=== PATIENT | male | born 1965 | race Caucasian/White ===

== ENCOUNTER 2019-08-21 11:30 | Outpatient (RCR) | payer OTHER, SELFPAY | END 2019-08-21 23:59 | disposition home or self-care (01) | LOC: ANHAUDIO 11:30 | PROVIDERS: Visit Provider Internal Medicine | DX: Z46.1 Encounter for fitting and adjustment of hearing aid (principal) | CPT/HCPCS: 99199; V5160; V5261 ==

== ENCOUNTER 2021-08-02 12:55 | Outpatient (CLI) | payer OTHER, SELFPAY ==
--- NOTE | 2021-08-02 13:03 | ECHO_ITS ---
Patient Info Name: Paulo Andrew Age: 55 years : 1965 Gender: Male Ht: 72 in Wt: 195 lbs BSA: 2.13 m2 HR: 74 bpm BP: 166 / 104 mmHg Heart Rhythm: Sinus Rhythm Technical Quality: Fair Exam Date: 08/02/2021 1:25 PM Exam Location: [facility] Pulmonary Patient Status: Outpatient Admit Date: 08/02/2021 Staff Ordering Physician: Kenroy Adamson DO Pc Analyst: Geovanna Adamson RCS Attending Provider: Kenroy Adamson DO Referring Physician: Juan Diego ALVARADO; Exam Type: CA echo doppler color flow Study Info Indications Z95.810 - Presence of automatic (implantable) cardiac defibrillator Complete two-dimensional, color flow and Doppler transthoracic echocardiogram is performed. Summary 1. Complete two-dimensional, color flow and Doppler transthoracic echocardiogram is performed. 2. Left ventricular chamber dimension is severely enlarged. 3. Left ventricular systolic function is severely reduced, estimated at 20-25%. 4. The left ventricular diastolic function is abnormal. 5. E/e' 20 is elevated. 6. Global longitudinal strain is abnormal at -8.3%. 7. Linear artifact in right ventricle suggestive of catheter(s), pacemaker lead(s), or ICD lead(s). 8. Left atrial chamber dimension is moderately enlarged. 9. Linear artifact in the right atrium suggestive of catheter(s), pacemaker lead(s), or ICD lead(s). 10. Right atrial chamber dimension is mildly enlarged. 11. There is mild aortic valve sclerosis. 12. There is mild mitral valve regurgitation. 13. There is mild tricuspid valve regurgitation. 14. Moderate pulmonary hypertension, estimated pulmonary arterial systolic pressure is 55 mmHg. 15. There is trace pulmonic regurgitation. Left Ventricle E/e' 20 is elevated. Global longitudinal strain is abnormal at -8.3%. Left ventricular chamber dimension is severely enlarged. Left ventricular systolic function is severely reduced, estimated at 20-25%. The left ventricular diastolic function is abnormal. Right Ventricle Linear artifact in right ventricle suggestive of catheter(s), pacemaker lead(s), or ICD lead(s). Right ventricular chamber dimension is normal. Right ventricular systolic function is normal. Left Atria Left atrial chamber dimension is moderately enlarged. Right Atria Linear artifact in the right atrium suggestive of catheter(s), pacemaker lead(s), or ICD lead(s). Right atrial chamber dimension is mildly enlarged. Aortic Valve The aortic valve is trileaflet. There is mild aortic valve sclerosis. There is no aortic valve stenosis. There is no aortic valve regurgitation. Pulmonic Valve There is trace pulmonic regurgitation. Mitral Valve There is no mitral valve stenosis. There is mild mitral valve regurgitation. Tricuspid Valve There is mild tricuspid valve regurgitation. Moderate pulmonary hypertension, estimated pulmonary arterial systolic pressure is 55 mmHg. Pericardium/Pleural There is no pericardial effusion. Inferior Vena Cava Normal inferior vena cava with >50% collapse upon inspiration consistent with normal right atrial pressure, 5 mmHg. Aorta The aortic root size at the sinus of Valsalva is normal. Left Ventricular Outflow Tract Name Value Normal LVOT 2D LVOT
== END 2021-08-02 12:56 | disposition home or self-care (01) ==
LOC: ANHCARD 12:56
PROVIDERS: PCP Internal Medicine; Visit Provider Internal Medicine Cardiovascular Disease
DX: I25.10 Atherosclerotic heart disease of native coronary artery without angina pectoris (principal); Z95.810 Presence of automatic (implantable) cardiac defibrillator; I70.0 Atherosclerosis of aorta; I34.0 Nonrheumatic mitral (valve) insufficiency; I36.1 Nonrheumatic tricuspid (valve) insufficiency; I27.20 Pulmonary hypertension, unspecified
CPT/HCPCS: 93306

== ENCOUNTER 2022-06-18 09:50 | Outpatient (CLI) | payer OTHER, SELFPAY ==
--- NOTE | ~2022-06-18 | NM_ITS ---
EXAMINATION: NM keri stress w perfusion DATE: 06/18/2022 12:44 INDICATION: Chest pain, unspecified TECHNIQUE: Rest images were obtained in supine position following intravenous administration of 9.3 m Ci Tc99m tetrofosmin (Myoview). The patient was infused intravenously with Lexiscan (Regadenoson). Th en, 21 mCi Tc99m tetrofosmin (Myoview) was administered intravenously, and stress images were obtaine d in supine position. Additional post stress images were obtained in prone position. Data was reconst ructed into short axis and horizontal and vertical long axis SPECT images. Gated SPECT images were al so obtained. COMPARISON: None. FINDINGS: Large contiguous moderate to severe perfusion defect involving the apical, apical anterior, apical lateral, apical septal, apical inferior, mid inferior, basilar inferior, mid anterolateral an d mid posterior lateral segments. There is an additional separate small severe perfusion defect at th e mid anterior segment which on both the rest and prone post stress images is from the perf usion defect at the apical anterior segment small band of persistent normal perfusion. There is a sma ll region of persistent activity on the rest images at the junction of the mid and basilar inferior a nd inferolateral segments which based on a both the axial slice images as well as the rotating source images appears more likely to represent artifact of transient bowel activity rather than a region of ischemia. There is otherwise no significant difference between the rest and prone post stress images . Marked left ventricular enlargement with calculated end-diastolic volume of 292 mL. There is global hypokinesis with moderately decreased left ventricular ejection fraction measuring 23%. IMPRESSION: 1. 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 2. Separate small moderate severity nonreversible infarct at the mid anterior segment. 3. Small region of mild activity on the rest images along the mid to basilar inferior and mid inferol ateral segments which appears more likely artifact of bowel activity rather than a region for reversi ble ischemia. 4. Left ventricular enlargement with global hypokinesis and moderately decreased left ejection fracti on measuring 23%. Reviewed, dictated and finalized at location A. [facility] IMPRESSION: 1. 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 2. Separate small moderate severity nonreversible infarct at the mid anterior s egment. 3. Small region of mild activity on the rest images along the mid to basilar in ferior and mid inferolateral segments which appears more likely artifact of bow el activity rather than a region for reversible ischemia. 4. Left ventricular enlargement with global hypokinesis and moderately decrease d left ejection fraction measuring 23%.
--- NOTE | 2022-06-18 10:12 | EST_ITS ---
Patient Info Name: Paulo Andrew Age: 56 years : 1965 Gender: Male Ht: 72 in Wt: 172 lbs BSA: 1.99 m2 HR: 67 bpm BP: 152 / 66 mmHg Heart Rhythm: Sinus Rhythm Exam Date: 06/18/2022 10:49 AM Exam Location: [facility] [place] [facility] Patient Status: Outpatient Admit Date: 06/18/2022 Staff Ordering Physician: Kenroy Adamson DO Attending Provider: Kenroy Adamson DO Exercise Technologist: Diana Donohue CT Exercise Physician: Kenroy Adasmon DO Exam Type: CA stress keri w NM Study Info Indications R07.9 - Chest pain, unspecified A regadenoson stress test was performed. Summary 1. 1. Negative lexiscan stress test for ischemic ST changes by ECG criteria. 2. 2. Baseline hypertension. 3. 3. Nuclear scan to follow and will be reported separately. Please correlate with it. 4. 4. Patient informed of the above results. Protocol: Lexiscan Stress ECG Details Stage: REST Duration (min): 3 min : 26 sec HR (bpm): 69 SBP (mmHg): 152 DBP (mmHg): 56 Stage: REST Duration (min): 4 min : 52 sec HR (bpm): 65 SBP (mmHg): 152 DBP (mmHg): 56 Stage: STAGE 1 Duration (min): 0 min : 59 sec HR (bpm): 72 SBP (mmHg): 146 DBP (mmHg): 72 Stage: RECOVERY Duration (min): 1 min : 0 sec HR (bpm): 89 SBP (mmHg): 146 DBP (mmHg): 72 Stage: RECOVERY Duration (min): 2 min : 0 sec HR (bpm): 77 SBP (mmHg): 146 DBP (mmHg): 72 Stage: RECOVERY Duration (min): 2 min : 45 sec HR (bpm): 79 SBP (mmHg): 131 DBP (mmHg): 67 Rest HR: 65 bpm Peak HR: 89 bpm Rest Sys BP: 152 mmHg Peak Sys BP: 146 mmHg Max Pred HR: 163 bpm % Max Pred HR: 55 % Target HR: 139 bpm Max RPP: 12,994 bpm*mmHg Termination Reason: Completed protocol Cardiac Symptoms: Shortness of breath Total Time: 1 min : 0 sec Rest Smith BP: 56 mmHg Peak Smith BP: 72 mmHg Total Dose: 0.4 mg Resting ECG Sinus rhythm, cannot r/o septal infarct, age indeterminate, ST-T wave abnormality in inf/lat leads- consider ischemia. Stress ECG No ST changes. Arrhythmias None. Report Signatures
== END 2022-06-18 09:51 | disposition home or self-care (01) ==
PROVIDERS: PCP Internal Medicine; Visit Provider Internal Medicine Cardiovascular Disease
DX: R07.9 Chest pain, unspecified (principal); I21.09 ST elevation (STEMI) myocardial infarction involving other coronary artery of anterior wall; I51.7 Cardiomegaly
CPT/HCPCS: 78452; 93017; A9502; J2785

== ENCOUNTER 2022-08-07 12:25 | Outpatient (CLI) | payer OTHER, SELFPAY ==
--- NOTE | 2022-08-07 12:48 | ECHO_ITS ---
Patient Info Name: Paulo Andrew Age: 56 years : 1965 Gender: Male Ht: 72 in Wt: 185 lbs BSA: 2.07 m2 HR: 93 bpm BP: 126 / 82 mmHg Heart Rhythm: Sinus Rhythm Technical Quality: Fair Exam Date: 08/07/2022 12:52 PM Exam Location: [facility] Pulmonary Patient Status: Outpatient Admit Date: 08/07/2022 Staff Ordering Physician: Kenroy Adamson DO Station Installation Supervisor: Vanessa Davies RDCS Attending Provider: Kenroy Adamson DO Referring Physician: Juan Diego ALVARADO; Exam Type: CA echo doppler color flow Study Info Indications I51.9 - Heart disease, unspecified Complete two-dimensional, color flow and Doppler transthoracic echocardiogram is performed. Strain analysis performed. Summary 1. Complete two-dimensional, color flow and Doppler transthoracic echocardiogram is performed. 2. Left ventricular chamber dimension is severely enlarged. 3. Left ventricular systolic function is severely globally reduced, estimated at 30-35%. 4. The left ventricular diastolic function is abnormal. 5. E/e' 24 is elevated. 6. Global longitudinal strain is abnormal at -8.8%. 7. Right ventricular chamber dimension is mildly enlarged. 8. Linear artifact in right ventricle suggestive of catheter(s), pacemaker lead(s), or ICD lead(s). 9. Left atrial chamber dimension is mildly enlarged. 10. Right atrial chamber dimension is mildly enlarged. 11. Linear artifact in the right atrium suggestive of catheter(s), pacemaker lead(s), or ICD lead(s). 12. There is mild aortic valve sclerosis. 13. There is trace mitral valve regurgitation. 14. There is mild tricuspid valve regurgitation. 15. Mild pulmonary hypertension, estimated pulmonary arterial systolic pressure is 40 mmHg. 16. There is trace pulmonic regurgitation. 17. Dilated inferior vena cava with >50% collapse upon inspiration consistent with elevated right atrial pressure, 10 mmHg. Left Ventricle E/e' 24 is elevated. Global longitudinal strain is abnormal at -8.8%. Left ventricular chamber dimension is severely enlarged. Left ventricular systolic function is severely globally reduced, estimated at 30-35%. The left ventricular diastolic function is abnormal. Right Ventricle Linear artifact in right ventricle suggestive of catheter(s), pacemaker lead(s), or ICD lead(s). Right ventricular chamber dimension is mildly enlarged. Right ventricular systolic function is normal. Left Atria Left atrial chamber dimension is mildly enlarged. Right Atria Linear artifact in the right atrium suggestive of catheter(s), pacemaker lead(s), or ICD lead(s). Right atrial chamber dimension is mildly enlarged. Aortic Valve The aortic valve is trileaflet. There is mild aortic valve sclerosis. There is no aortic valve stenosis. There is no aortic valve regurgitation. Pulmonic Valve There is trace pulmonic regurgitation. Mitral Valve There is no mitral valve stenosis. There is trace mitral valve regurgitation. Tricuspid Valve There is mild tricuspid valve regurgitation. Mild pulmonary hypertension, estimated pulmonary arterial systolic pressure is 40 mmHg. Pericardium/Pleural There is no pericardial effusion. Inferior Vena Cava Dilated inferior vena cava with >50% collapse upon inspiration consistent with elevated right atrial pressure, 10 mmHg. Aorta The aortic root size at the sinus of Valsalva is normal. Left Ventricular Outflow Tract Name
== END 2022-08-07 12:26 | disposition home or self-care (01) ==
PROVIDERS: PCP Internal Medicine; Visit Provider Internal Medicine Cardiovascular Disease
DX: I08.2 Rheumatic disorders of both aortic and tricuspid valves (principal); I27.20 Pulmonary hypertension, unspecified
CPT/HCPCS: 93306